=== PATIENT | male | born 1985 | race Hispanic/Latino ===

== ENCOUNTER 2020-09-18 12:36 | Inpatient (IN) | payer MEDICAID ==
[~2020-09-18] VITALS: Ht 165.1 cm; Wt 86.2 kg
[2020-09-18] MEDS ORDERED: AZITHROMYCIN 500MG+NS 250ML 250 ML IV ONE (12:54)
[2020-09-18] MEDS ORDERED: DEXAMETHASONE SOD PHOSPHATE 10MG/ML 1ML VIAL ONE (12:54)
[2020-09-18] MEDS ORDERED: ASPIRIN 325 MG TABLET ONE (12:54)
[2020-09-18] MEDS ORDERED: CEFTRIAXONE SODIUM 1 GM ONE (12:55)
[2020-09-18 13:04] LABS: BASOPHILS % (AUTO) 0.9 % (0.0-5.0); EOSINOPHILS % (AUTO) 0.1 % (0.0-8.0); HEMATOCRIT 43.6 % (42-54); LYMPHOCYTES % (AUTO) 13.8 % (21.0-51.0); MEAN CORPUSCULAR HEMOGLOBIN 29.4 pg (27.0-33.0); MEAN CORPUSCULAR HGB CONC 35.1 g/dL (32.0-36.0); MEAN CORPUSCULAR VOLUME 83.7 fL (79-99); NEUTROPHILS % (AUTO) 79.5 % (40.0-77.0); PLATELET COUNT (AUTO) 238 K/uL (130-400); RED BLOOD CELL COUNT(AUTO) 5.21 MIL/uL (4.50-6.20); RED CELL DISTRIBUTION WIDTH 12.2 % (11.0-15.5); WHITE BLOOD COUNT (AUTO) 7.7 K/uL (4.8-10.8)
[2020-09-18] MEDS ORDERED: ACETAMINOPHEN 325 MG TAB ONE (13:06)
[2020-09-18 13:20] LABS: INR 1.11 (0.85-1.15); PROTHROMBIN TIME 11.8 SEC (9.6-11.6)
[2020-09-18 13:21] LABS: PARTIAL THROMBOPLASTIN TIME 29.2 SEC (26.3-35.5)
[2020-09-18 13:31] LABS: CREATININE 1.3 mg/dL (0.5-1.5); POTASSIUM 3.5 mmol/L (3.5-5.1)
[2020-09-18 13:36] LABS: ALBUMIN 3.2 g/dL (3.5-5.0); BILIRUBIN,TOTAL 0.6 mg/dL (0.2-1.0); RAPID GROUP A STREP NEGATIVE (NEGATIVE); TOTAL PROTEIN, SERUM 7.4 g/dL (6.0-8.3)
[2020-09-18] MEDS ORDERED: SODIUM CHLORIDE 0.9% 1000ML 1,000 ML IV ONE (14:14)
[2020-09-18 15:11] LABS: APPEARANCE,URINE Clear (CLEAR); BILIRUBIN,URINE Negative (NEGATIVE); COLOR,URINE Yellow (YELLOW); GLUCOSE, URINE (UA) Negative (NEGATIVE); KETONES,URINE Negative (NEGATIVE); LEUKOCYTE ESTERASE ,URINE Negative (NEGATIVE); NITRATE,URINE Negative (NEGATIVE); OCCULT BLOOD,URINE Negative (NEGATIVE); PROTEIN,URINE Trace mg/dL (NEGATIVE)
[2020-09-18 15:17] LABS: AMPHET/METH SCREEN,URINE NEGATIVE (NEGATIVE); BARBITURATE SCREEN, URINE NEGATIVE (NEGATIVE); BENZODIAZEPINES SCREEN,URINE NEGATIVE (NEGATIVE); CANNABINOID SCREEN,URINE POSITIVE (NEGATIVE); COCAINE SCREEN,URINE POSITIVE (NEGATIVE); OPIATE SCREEN,URINE NEGATIVE (NEGATIVE); PHENCYCLIDINE SCREEN,URINE NEGATIVE (NEGATIVE)
[2020-09-18 15:23] LABS: BACTERIA,URINE Rare /HPF (None Seen); RBC,URINE 0-1 /HPF (0-1); SQUAMOUS EPITHELIAL CELL,UR Rare /HPF (0-2); WBC,URINE 0-1 /HPF (0-1)
[2020-09-18] MEDS ORDERED: LACTATED RINGERS 1000ML 2,000 ML IV ONE (15:38)
[2020-09-18] MEDS ORDERED: ZOSYN 3.375GM+NS 50ML 50 ML IV SCH (17:00)
[2020-09-18] MEDS ORDERED: LACTATED RINGERS 1000ML 1,000 ML IV SCH (17:00)
[2020-09-18] MEDS ORDERED: ACETAMINOPHEN 325 MG TAB PO PRN ×2 (17:00→17:15)
[2020-09-18] MEDS ORDERED: LACTATED RINGERS 1000ML IV SCH (17:00)
[2020-09-18] MEDS ORDERED: NOREPINEPHRINE 4MG/NS 250ML 250 ML IV SCH (17:00)
[2020-09-18 17:01] LABS: PHOSPHORUS 2.6 mg/dL (2.5-4.9); POTASSIUM 3.8 mmol/L (3.5-5.1)
[2020-09-18] MEDS ORDERED: ZOSYN 3.375GM+NS 50ML 50 ML IV ONE (17:13)
[2020-09-18] MEDS ORDERED: LACTATED RINGERS 1000ML 1,000 ML IV ONE (17:14)
[2020-09-18] MEDS ORDERED: NOREPINEPHRINE 4MG/NS 250ML 250 ML IV ONE (17:14)
[2020-09-18] MEDS ORDERED: POTASSIUM CHLORIDE 10% ELIXIR 20 MEQ/15 ML UDCUP PO PRN (17:15)
[2020-09-18] MEDS ORDERED: ACETAMINOPHEN 650 MG SUPPOSITORY RC PRN (17:15)
[2020-09-18] MEDS ORDERED: POTASSIUM CHLORIDE 20MEQ/100ML 100 ML IV PRN (17:15)
[2020-09-18] MEDS ORDERED: CEFTRIAXONE SODIUM 2 GM VIAL IVP SCH (17:15)
[2020-09-18] MEDS ORDERED: LIDOCAINE HCL-MPF 1% 2ML VIAL IV PRN (17:15)
[2020-09-18] MEDS ORDERED: GLUCAGON 1MG KIT 1 MG ML IM PRN (17:15)
[2020-09-18] MEDS ORDERED: MORPHINE SULFATE 2 MG/ML 1ML SYG IVP PRN (17:15)
[2020-09-18] MEDS ORDERED: POTASSIUM CHLORIDE 20 MEQ ERTAB PO PRN (17:15)
[2020-09-18] MEDS ORDERED: DEXTROSE 50%-WATER 50 ML DISP.SYRIN IV PRN (17:15)
[2020-09-18] MEDS ORDERED: ONDANSETRON HCL 4 MG/2 ML VIAL IVP PRN (17:15)
[2020-09-18 17:24] LABS: CREATINE KINASE, TOTAL 144 U/L (21-232); MYOGLOBIN 46 ng/mL (10-92); TROPONIN I < 0.04 ng/mL (0.00-0.06)
[2020-09-18] MEDS ORDERED: COMPOUND IV REFRIGERATED 1 EACH IVSOLN MISC PRN (17:30)
[2020-09-18] MEDS ORDERED: ALBUTEROL INHALER 90MCG/INH IH PRN (19:45)
[2020-09-18] MEDS ORDERED: FAMOTIDINE/PF 20 MG/2 ML VIAL IV SCH (21:00)
[2020-09-18] MEDS ORDERED: FAMOTIDINE/PF 20 MG/2 ML VIAL IV ONE (22:28)
[2020-09-18 23:35] LABS: CREATINE KINASE, TOTAL 123 U/L (21-232); MYOGLOBIN 59 ng/mL (10-92); TROPONIN I < 0.04 ng/mL (0.00-0.06)
[2020-09-19 06:30] LABS: HEMATOCRIT 42.4 % (42-54); MEAN CORPUSCULAR HEMOGLOBIN 29.2 pg (27.0-33.0); MEAN CORPUSCULAR HGB CONC 34.7 g/dL (32.0-36.0); MEAN CORPUSCULAR VOLUME 84.3 fL (79-99); RED BLOOD CELL COUNT(AUTO) 5.03 MIL/uL (4.50-6.20); RED CELL DISTRIBUTION WIDTH 12.3 % (11.0-15.5); WHITE BLOOD COUNT (AUTO) 8.1 K/uL (4.8-10.8)
[2020-09-19 06:57] LABS: ALANINE AMINOTRANSFERASE 70 U/L (12-78); ALBUMIN 2.6 g/dL (3.5-5.0); ASPARTATE AMINOTRANSFERASE 66 U/L (10-37); BILIRUBIN,TOTAL 0.4 mg/dL (0.2-1.0); CARBON DIOXIDE 25 mmol/L (21-32); CHLORIDE 105 mmol/L (101-111); CREATINE KINASE, TOTAL 102 U/L (21-232); CREATININE 0.9 mg/dL (0.5-1.5); GLOMERULAR FILTR. RATE CALC 101 mL/min (>60); GLUCOSE,RANDOM 140 mg/dL (70-105); LACTATE DEHYDROGENASE 304 U/L (81-234); MYOGLOBIN 32 ng/mL (10-92); POTASSIUM 3.8 mmol/L (3.5-5.1); SODIUM SERUM 139 mmol/L (136-145); TOTAL PROTEIN, SERUM 6.5 g/dL (6.0-8.3); TROPONIN I < 0.04 ng/mL (0.00-0.06); UREA NITROGEN, BLOOD 8 mg/dL (7-18)
[2020-09-19] MEDS ORDERED: SODIUM CHLORIDE IV SCH (07:00)
[2020-09-19] MEDS ORDERED: M V I IV SCH (07:00)
[2020-09-19] MEDS ORDERED: DEXAMETHASONE SOD PHOSPHATE 10MG/ML 1ML VIAL ONE (08:23)
[2020-09-19] MEDS ORDERED: FAMOTIDINE/PF 20 MG/2 ML VIAL IV ONE (08:24)
[2020-09-19] MEDS ORDERED: ENOXAPARIN SODIUM 40 MG/0.4 ML SYRINGE SQ ONE (08:24)
[2020-09-19] MEDS ORDERED: ZOSYN 3.375GM+NS 50ML 50 ML IV ONE (08:24)
[2020-09-19] MEDS ORDERED: M.V.I. IV [ADULT] 10 ML VIAL IV ONE (08:26)
[2020-09-19] MEDS ORDERED: AZITHROMYCIN 500MG+NS 250ML 250 ML IV SCH (09:00)
[2020-09-19] MEDS ORDERED: ENOXAPARIN SODIUM 40 MG/0.4 ML SYRINGE SQ SCH ×2 (09:00→09:30)
[2020-09-19] MEDS ORDERED: DEXAMETHASONE 4 MG TAB PO SCH (09:00)
[2020-09-19] MEDS ORDERED: LACTATED RINGERS 1000ML IV SCH (09:30)
[2020-09-19] MEDS ORDERED: LACTATED RINGERS 1000ML 1,000 ML IV SCH (09:30)
[2020-09-19] MEDS ORDERED: AZITHROMYCIN 500MG+NS 250ML 250 ML IV ONE (10:09)
[2020-09-19] MEDS ORDERED: LACTATED RINGERS 1000ML 1,000 ML IV ONE (10:10)
[2020-09-19] MEDS ORDERED: IOHEXOL-350 75 ML VIAL IV ONE (11:04)
[2020-09-19] MEDS ORDERED: DOXYCYCLINE 100MG+NS 250ML 250 ML IV SCH (15:00)
[2020-09-21] MEDS ORDERED: M V I IV SCH (17:15)
[2020-09-21] MEDS ORDERED: SODIUM CHLORIDE IV SCH (17:15)
== END 2020-09-19 17:45 | disposition left against medical advice (07) | DRG 816 ==
LOC: EDH 12:36 → EDHIP 15:18
PROVIDERS: ADMIT Internal Medicine Pulmonary Disease; ATTEND Internal Medicine Pulmonary Disease
DX: T40.5X1A Poisoning by cocaine, accidental (unintentional), initial encounter (principal); E86.0 Dehydration; F20.9 Schizophrenia, unspecified; R57.1 Hypovolemic shock; R19.7 Diarrhea, unspecified; F19.10 Other psychoactive substance abuse, uncomplicated; F12.10 Cannabis abuse, uncomplicated; F14.10 Cocaine abuse, uncomplicated; F10.10 Alcohol abuse, uncomplicated; E86.1 Hypovolemia; Z20.828 Contact with and (suspected) exposure to other viral communicable diseases; Z72.0 Tobacco use; Z78.9 Other specified health status; Z90.49 Acquired absence of other specified parts of digestive tract; Y92.9 Unspecified place or not applicable
CPT/HCPCS: 36415; 36600; 71045; 71275; 74176; 80053; 80305; 81001; 82550; 82728; 83605; 83615; 83735; 83874; 84100; 84132; 84145; 84484; 85025; 85027; 85378; 85610; 85730; 86701; 87040; 87390; 87426; 87804; 87880; 93005; 99291; G0378; J0456; J0696; J1100; J1650; J2543; J3490; J7030; J7120; Q9967; U0003